=== PATIENT | female | born 1995 | race Caucasian/White ===

== ENCOUNTER 2018-09-27 17:05 | Emergency (ER) | payer BC ==
[2018-09-27] MEDS ORDERED: ASPIRIN 81 MG CHEWABLE TABLET PO ONE (17:30)
[2018-09-27] MEDS ORDERED: KETOROLAC 30 MG/ML VIAL IVP ONE (17:31)
[2018-09-27 17:44] LABS: BASO % 0.2 % (0-6); GRAN % 64.7 % (47-80); HEMATOCRIT 46.4 % (35.0-47.0); HEMOGLOBIN 15.6 gm/dl (11.6-16.0); LYMPH % 27.3 % (16-45); MEAN CELL VOLUME 95.5 fl (81-97); MEAN CORPUSCULAR HEMOGLOBIN 32.1 pg (27-33); MEAN CORPUSCULAR HGB CONC 33.6 g/dl (32-36); MEAN PLATELET VOLUME 10.4 fl (7.4-10.4); MONO % 6.8 % (0-9); PLATELET COUNT 454 K/uL (130-400); RED BLOOD COUNT 4.86 M/uL (3.80-5.40); RED CELL DISTRIBUTION WIDTH 12.4 % (11.5-14.5); WHITE BLOOD COUNT W/O DIFF 10.5 K/uL (4.2-12.2)
[2018-09-27 17:59] LABS: BLOOD UREA NITROGEN 12 mg/dL (6-20); CREATININE 0.7 mg/dL (0.5-0.9); EST GLOMERULAR FILTRATION RATE > 60 mL/min
[2018-09-27 18:00] LABS: TOTAL PROTEIN 8.5 g/dL (6.6-8.7)
[2018-09-27 18:02] LABS: GLUCOSE,RANDOM 110 mg/dL (74-109)
--- NOTE | 2018-09-27 18:02 | Emergency Department Record ---
History of Present Illness - General Chief Complaint: Chest Pain Stated Complaint: CHEST PAIN Time Seen by Provider: 09/27/18 17:19 Source: Patient Mode of Arrival: Ambulatory Limitations: No limitations - History of Present Illness Initial Comments: pt was working out in the gym when she stopped she developed cp that was squeezing and radiated to her neck and jaw. she has never had anything like this before. she had nausea. MD Complaint: Chest pain Onset/Timin -: Hour(s) Onset: During exertion Pain Location: Substernal Pain Radiation: RUE, LUE, Neck, Jaw/teeth Severity: Moderate Severity scale (1-10): 7 Quality: Tightness Consistency: Intermittent Improves With: Nothing Worsens With: Nothing Anginal Symptoms: Nausea - Related Data On Oral Contraceptives: No Home Medications Medication Instructions Recorded Confirmed Last Taken No Home Med [NO HOME MEDS] 09/27/18 09/27/18 Unknown Allergies Allergy/AdvReac Type Severity Reaction Status Date / Time Sulfa (Sulfonamide Allergy HIVES Verified 09/27/18 17:08 Antibiotics) diphenhydramine AdvReac TACHYCARDIA Verified 09/27/18 17:08 [From Benadryl] Travel Screening - Travel/Exposure Within Last 30 Days Have you traveled within the last 30 days?: Yes Location Detail:: [facility] - Travel/Exposure Within Last Year Have you traveled outside the [place] in the last year?: Yes Location Detail:: [place] - Travel Symptoms Symptom Screening: None Review of Systems Reviewed: No additional complaints except as noted below Constitutional: Reports: As per HPI. Denies: Chills, Fever, Malaise, Night sweats, Weakness, Weight change Eyes: Reports: As per HPI. Denies: Eye discharge, Eye pain, Photophobia, Vision change ENT: Reports: As per HPI. Denies: Congestion, Dental pain, Ear pain, Epistaxis , Hearing loss, Throat pain Respiratory: Reports: As per HPI. Denies: Cough, Dyspnea, Hemoptysis, Stridor, Wheezes Cardiovascular: Reports: As per HPI, Chest pain. Denies: Arrhythmia, Dyspnea on exertion, Edema, Murmurs, Orthopnea, Palpitations, Paroxysmal nocturnal dyspnea, Rheumatic Fever, Syncope Endocrine: Reports: As per HPI. Denies: Fatigue, Heat or cold intolerance, Polydipsia, Polyuria Gastrointestinal: Reports: As per HPI, Nausea. Denies: Abdominal pain, Constipation, Diarrhea, Hematemesis, Hematochezia, Melena, Vomiting Genitourinary: Reports: As per HPI. Denies: Abnormal menses, Discharge, Dyspareunia, Dysuria, Frequency, Hematuria, Incontinence, Retention, Urgency Musculoskeletal: Reports: As per HPI. Denies: Arthralgia, Back pain, Gout, Joint swelling, Myalgia, Neck pain Skin: Reports: As per HPI. Denies: Bruising, Change in color, Change in hair/ nails, Lesions, Pruritus, Rash Neurological: Reports: As per HPI. Denies: Abnormal gait, Confusion, Headache, Numbness, Paresthesias, Seizure, Tingling, Tremors, Vertigo, Weakness Psychiatric: Reports: As per HPI. Denies: Anxiety, Auditory hallucinations, Depression, Homicidal thoughts, Suicidal thoughts, Visual hallucinations Hematological/Lymphatic: Reports: As per HPI. Denies: Anemia, Blood Clots, Easy bleeding, Easy bruising, Swollen glands Past Medical History - SOCIAL HISTORY Smoking Status: Never smoker Alcohol Use: None Drug Use: None - RESPIRATORY Hx Bronchitis: Yes Hx Pneumonia: Yes - NEURO Hx Neuro Disorders: No - GI Hx Irritable Bowel: Yes - Hx Genitourinary Disorders: Yes Hx Kidney Stones: Yes Hx UTI: Yes - ENDOCRINE Hx Endocrine Disorders: No - MUSCULOSKELETAL Hx Musculoskeletal Disorders: No - PSYCH Hx Psych Problems: Yes Hx Anxiety: Yes - HEMATOLOGY/ONCOLOGY Hx Hematology/Oncology Disorders: No Family Medical History Any Significant Family History?: Yes Physical Exam - General General Appearance: Alert, Oriented x3, Cooperative, Mild distress - Head Head exam: Normal inspection - Eye Eye exam: Normal appearance, PERRL, EOMI Pupils: Normal accommodation - ENT ENT exam: Normal exam, Mucous membranes moist, Normal external ear exam, Normal orophraynx Ear exam: Normal external inspection. negative: External canal tenderness Nasal Exam: Normal inspection. negative: Discharge, Sinus tenderness Mouth exam: Normal external inspection, Tongue normal Teeth exam: Normal inspection. negative: Dental caries Throat exam: Normal inspection. negative: Tonsillar erythema, Tonsillar exudate - Neck Neck exam: Normal inspection, Full ROM. negative: Tenderness - Respiratory Respiratory exam: Normal lung sounds bilaterally. negative: Respiratory distress - Cardiovascular Cardiovascular Exam: Normal rhythm, Normal heart sounds, Tachycardia - GI/Abdominal GI/Abdominal exam: Soft, Normal bowel sounds. negative: Tenderness - Rectal Rectal exam: Deferred - exam: Deferred - Extremities Extremities exam: Normal inspection, Full ROM, Normal capillary refill. negative: Tenderness - Back Back exam: Reports: Normal inspection, Full ROM. Denies: Muscle spasm, Rash noted, Tenderness - Neurological Neurological exam: Alert, CN II-XII intact, Normal gait, Oriented X3 - Psychiatric Psychiatric exam: Normal affect, Normal mood - Skin Skin exam: Dry, Intact, Normal color, Warm Course Vital Signs 09/27/18 17:09 Temperature 98.2 F Pulse Rate 133 H Respiratory 24 Rate Blood Pressure 138/88 Pulse Ox 100 - Reevaluation(s) Reevaluation #1: 09/27/18 19:18 care turned over to dr barry pending 4 hour troponin and cpk and ckmb Medical Decision Making - Lab Data Result diagrams: 09/27/18 17:05 09/27/18 17:05 Lab Results 09/27/18 09/27/18 Range/Units 17:05 17:05 WBC 10.5 (4.2-12.2) K/uL RBC 4.86 (3.80-5.40) M/uL Hgb 15.6 (11.6-16.0) gm/dl Hct 46.4 (35.0-47.0) % MCV 95.5 (81-97) fl MCH 32.1 (27-33) pg MCHC 33.6 (32-36) g/dl RDW 12.4 (11.5-14.5) % Plt Count 454 H (130-400) K/uL MPV 10.4 (7.4-10.4) fl Gran % 64.7 (47-80) % Lymphocytes % 27.3 (16-45) % Monocytes % 6.8 (0-9) % Eosinophils % 1.0 (0-6) % Basophils % 0.2 (0-6) % D-Dimer 0.24 (0-0.59) mg/L FEU Disposition Forms: Patient Portal Access Quality - Blood Pressure Screening Does Patient Have Any of the Following: No Blood Pressure Classification: Pre-Hypertensive BP Reading Systolic Measurement: 138 Diastolic Measurement: 88 Screening for High Blood Pressure: < Pre-Hypertensive BP, F/U Documented > [ G8950]
[2018-09-27 18:04] LABS: ALB/GLOB RATIO 1.4 (1.1-1.8); ALT/SGPT 70 U/L (<33); AST/SGOT 144 U/L (10.0-35.0)
[2018-09-27 18:05] LABS: ALKALINE PHOSPHATASE 58 U/L (45-87)
[2018-09-27 18:07] LABS: CKMB 5.1 ng/mL (<3.77)
[2018-09-27 18:19] LABS: CREATINE PHOSPHOKINASE 3004 U/L (26-192)
[2018-09-27] MEDS ORDERED: 0.9 % SODIUM CHLORIDE 1,000 ML BAG IV ONE ×2 (18:25→19:22)
[2018-09-27 18:36] LABS: URINE APPEARANCE SL CLOUDY; URINE BILIRUBIN NEGATIVE (NEGATIVE); URINE BLOOD SMALL (NEGATIVE); URINE COLOR YELLOW; URINE GLUCOSE (UA) NEGATIVE (NEGATIVE); URINE KETONE NEGATIVE (NEGATIVE); URINE LEUKOCYTE ESTERASE TRACE (NEGATIVE); URINE NITRITE NEGATIVE (NEGATIVE); URINE PROTEIN NEGATIVE (NEGATIVE); URINE UROBILINOGEN 0.2 E.U./dL (0.20 - 1.00)
[2018-09-27 18:43] LABS: HCG,QUALITATIVE URINE NEGATIVE (NEGATIVE)
[2018-09-27 18:47] LABS: URINE BACTERIA 3+; URINE RBC 0 - 2 (NONE SEEN)
[2018-09-27 21:27] LABS: CREATINE PHOSPHOKINASE 1937 U/L (26-192)
--- NOTE | 2018-09-27 21:27 | Emergency Department Record ---
History of Present Illness - General Chief Complaint: Chest Pain Stated Complaint: CHEST PAIN Time Seen by Provider: 09/27/18 17:19 Source: Patient Mode of Arrival: Ambulatory Limitations: No limitations - History of Present Illness Onset/Timin -: Hour(s) Onset: During exertion Pain Location: Substernal Pain Radiation: RUE, LUE, Neck, Jaw/teeth Severity: Moderate Severity scale (1-10): 7 Quality: Tightness Consistency: Intermittent Improves With: Nothing Worsens With: Nothing Anginal Symptoms: Nausea - Related Data On Oral Contraceptives: No Home Medications Medication Instructions Recorded Confirmed Last Taken No Home Med [NO HOME MEDS] 09/27/18 09/27/18 Unknown Allergies Allergy/AdvReac Type Severity Reaction Status Date / Time Sulfa (Sulfonamide Allergy HIVES Verified 09/27/18 17:08 Antibiotics) diphenhydramine AdvReac TACHYCARDIA Verified 09/27/18 17:08 [From Benadryl] Travel Screening - Travel/Exposure Within Last 30 Days Have you traveled within the last 30 days?: Yes Location Detail:: [place] - Travel/Exposure Within Last Year Have you traveled outside the [place] in the last year?: Yes Location Detail:: [place] - Travel Symptoms Symptom Screening: None Review of Systems Constitutional: Reports: As per HPI. Denies: Chills, Fever, Malaise, Night sweats, Weakness, Weight change Eyes: Reports: As per HPI. Denies: Eye discharge, Eye pain, Photophobia, Vision change ENT: Reports: As per HPI. Denies: Congestion, Dental pain, Ear pain, Epistaxis , Hearing loss, Throat pain Respiratory: Reports: As per HPI. Denies: Cough, Dyspnea, Hemoptysis, Stridor, Wheezes Cardiovascular: Reports: As per HPI, Chest pain. Denies: Arrhythmia, Dyspnea on exertion, Edema, Murmurs, Orthopnea, Palpitations, Paroxysmal nocturnal dyspnea, Rheumatic Fever, Syncope Endocrine: Reports: As per HPI. Denies: Fatigue, Heat or cold intolerance, Polydipsia, Polyuria Gastrointestinal: Reports: As per HPI, Nausea. Denies: Abdominal pain, Constipation, Diarrhea, Hematemesis, Hematochezia, Melena, Vomiting Genitourinary: Reports: As per HPI. Denies: Abnormal menses, Discharge, Dyspareunia, Dysuria, Frequency, Hematuria, Incontinence, Retention, Urgency Musculoskeletal: Reports: As per HPI. Denies: Arthralgia, Back pain, Gout, Joint swelling, Myalgia, Neck pain Skin: Reports: As per HPI. Denies: Bruising, Change in color, Change in hair/ nails, Lesions, Pruritus, Rash Neurological: Reports: As per HPI. Denies: Abnormal gait, Confusion, Headache, Numbness, Paresthesias, Seizure, Tingling, Tremors, Vertigo, Weakness Psychiatric: Reports: As per HPI. Denies: Anxiety, Auditory hallucinations, Depression, Homicidal thoughts, Suicidal thoughts, Visual hallucinations Hematological/Lymphatic: Reports: As per HPI. Denies: Anemia, Blood Clots, Easy bleeding, Easy bruising, Swollen glands Past Medical History - SOCIAL HISTORY Smoking Status: Never smoker Alcohol Use: None Drug Use: None - RESPIRATORY Hx Bronchitis: Yes Hx Pneumonia: Yes - NEURO Hx Neuro Disorders: No - GI Hx Irritable Bowel: Yes - Hx Genitourinary Disorders: Yes Hx Kidney Stones: Yes Hx UTI: Yes - ENDOCRINE Hx Endocrine Disorders: No - MUSCULOSKELETAL Hx Musculoskeletal Disorders: No - PSYCH Hx Psych Problems: Yes Hx Anxiety: Yes - HEMATOLOGY/ONCOLOGY Hx Hematology/Oncology Disorders: No Family Medical History Any Significant Family History?: Yes Physical Exam - General Limitations: No limitations Course Vital Signs 09/27/18 09/27/18 09/27/18 17:09 18:17 19:32 Temperature 98.2 F Pulse Rate 133 H 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 Patient and her mother were updated on all results as well as the plan for repeat labs. Further history reveals that the patient engaged in a newer "full-body" work- out 3 days ago with a vocational trainer, likely the etiology of her elevated CPK. All questions were answered. Reevaluation #2: 09/27/18 21:34 repeat labs were reviewed: Troponin < 0.010 CPK improved to 1937 MB 4.1 Patient and her mother were updated on all results, appears stable for discharge at this time. Medical Decision Making - Lab Data Result diagrams: 09/27/18 17:05 09/27/18 17:05 Lab Results 09/27/18 09/27/18 09/27/18 Range/Units 17:05 17:05 17:05 WBC 10.5 (4.2-12.2) K/uL RBC 4.86 (3.80-5.40) M/uL Hgb 15.6 (11.6-16.0) gm/dl Hct 46.4 (35.0-47.0) % MCV 95.5 (81-97) fl MCH 32.1 (27-33) pg MCHC 33.6 (32-36) g/dl RDW 12.4 (11.5-14.5) % Plt Count 454 H (130-400) K/uL MPV 10.4 (7.4-10.4) fl Gran % 64.7 (47-80) % Lymphocytes % 27.3 (16-45) % Monocytes % 6.8 (0-9) % Eosinophils % 1.0 (0-6) % Basophils % 0.2 (0-6) % D-Dimer 0.24 (0-0.59) mg/L FEU Sodium 142 (136-145) mmol/L Potassium 4.1 (3.4-4.5) mmol/L Chloride 101 (98-107) mmol/L Carbon Dioxide 21.0 L (22-29) mmol/L Anion Gap 20.0 H (7-16) BUN 12 (6-20) mg/dL Creatinine 0.7 (0.5-0.9) mg/dL Estimated GFR > 60 mL/min Random Glucose 110 H (74-109) mg/dL Calcium 9.7 (8.6-10.0) mg/dL Total Bilirubin 0.20 (0.2-1.0) mg/dL AST 144 H (10.0-35.0) U/L ALT 70 H (<33) U/L Alkaline Phosphatase 58 (45-87) U/L Creatine Kinase 3004 H (26-192) U/L CK-MB (CK-2) 5.1 H (<3.77) ng/mL Troponin T < 0.010 (0-0.010) ng/mL Total Protein 8.5 (6.6-8.7) g/dL Albumin 5.0 (4.0-5.0) g/dL Globulin 3.5 (1.4-4.8) gm/dL Albumin/Globulin Ratio 1.4 (1.1-1.8) Urine Color Urine Appearance Urine pH (5.0-8.0) Ur Specific [place] (1.002-1.030) Urine Protein (NEGATIVE) Urine Glucose (UA) (NEGATIVE) Urine Ketones (NEGATIVE) Urine Blood (NEGATIVE) Urine Nitrite (NEGATIVE) Urine Bilirubin (NEGATIVE) Urine Urobilinogen (0.20 - 1.00) E.U./dL Ur Leukocyte Esterase (NEGATIVE) Urine RBC (NONE SEEN) Urine WBC (0-2/hpf) Ur Epithelial Cells (FEW) Urine Bacteria Urine HCG, Qual (NEGATIVE) 09/27/18 Range/Units 18:30 WBC (4.2-12.2) K/uL RBC (3.80-5.40) M/uL Hgb (11.6-16.0) gm/dl Hct (35.0-47.0) % MCV (81-97) fl MCH (27-33) pg MCHC (32-36) g/dl RDW (11.5-14.5) % Plt Count (130-400) K/uL MPV (7.4-10.4) fl Gran % (47-80) % Lymphocytes % (16-45) % Monocytes % (0-9) % Eosinophils % (0-6) % Basophils % (0-6) % D-Dimer (0-0.59) mg/L FEU Sodium (136-145) mmol/L Potassium (3.4-4.5) mmol/L Chloride (98-107) mmol/L Carbon Dioxide (22-29) mmol/L Anion Gap (7-16) BUN (6-20) mg/dL Creatinine (0.5-0.9) mg/dL Estimated GFR mL/min Random Glucose (74-109) mg/dL Calcium (8.6-10.0) mg/dL Total Bilirubin (0.2-1.0) mg/dL AST (10.0-35.0) U/L ALT (<33) U/L Alkaline Phosphatase (45-87) U/L Creatine Kinase (26-192) U/L CK-MB (CK-2) (<3.77) ng/mL Troponin T (0-0.010) ng/mL Total Protein (6.6-8.7) g/dL Albumin (4.0-5.0) g/dL Globulin (1.4-4.8) gm/dL Albumin/Globulin Ratio (1.1-1.8) Urine Color Yellow Urine Appearance Sl cloudy Urine pH 6.0 (5.0-8.0) Ur Specific [place] 1.010 (1.002-1.030) Urine Protein Negative (NEGATIVE) Urine Glucose (UA) Negative (NEGATIVE) Urine Ketones Negative (NEGATIVE) Urine Blood Small H (NEGATIVE) Urine Nitrite Negative (NEGATIVE) Urine Bilirubin Negative (NEGATIVE) Urine Urobilinogen 0.2 (0.20 - 1.00) E.U./dL Ur Leukocyte Esterase Trace H (NEGATIVE) Urine RBC 0 - 2 (NONE SEEN) Urine WBC 6 - 10 (0-2/hpf) Ur Epithelial Cells 7 - 10 (FEW) Urine Bacteria 3+ Urine HCG, Qual Negative (NEGATIVE) Disposition Disposition: Discharge Clinical Impression: Elevated CPK Chest pain Qualifiers: Chest pain type: unspecified Qualified Code(s): R07.9 - Chest pain, unspecified Disposition: Home, Self-Care Condition: (2) Stable Instructions: Rhabdomyolysis (ED) Additional Instructions: Return to ED if your symptoms worsen or if you have any concerns. Drink plenty of clear fluids as directed. Follow-up with your family doctor in 3-5 days as directed. Repeat lab draw in 72 hours. Forms: Patient Portal Access Time of Disposition: 21:35 Quality - Quality Measures Quality Measures: N/A - Blood Pressure Screening Does Patient Have Any of the Following: No Blood Pressure Classification: Pre-Hypertensive BP Reading Systolic Measurement: 138 Diastolic Measurement: 88 Screening for High Blood Pressure: < Pre-Hypertensive BP, F/U Documented > [ G8950] Pre-Hypertensive Follow-up Interventions: Referral to alternative/primary care provider.
[2018-09-27 21:28] LABS: CKMB 4.1 ng/mL (<3.77)
--- NOTE | 2018-09-29 22:33 | RADIOLOGY REPORT ---
EXAM: CHEST 2 VIEWS HISTORY: COUGH. CHEST PAIN. TECHNIQUE: Two views of the chest. COMPARISON: None. FINDINGS: Cardiac silhouette within normal size limits. No focal pulmonary consolidation. No pleural effusion or pneumothorax. No acute osseous findings. IMPRESSION: NO ACUTE LUNG FINDINGS. JOB NUMBER: [id number] MTDD
== END 2018-09-27 21:57 | disposition home or self-care (01) ==
LOC: ER 17:05
DX: R74.8 Abnormal levels of other serum enzymes (principal); R07.2 Precordial pain; R11.0 Nausea; R05 Cough; R20.2 Paresthesia of skin
CPT/HCPCS: 99284 ×2; 96374; 96361; 82550; 85025; 82553; 80053; 81001; 81025; 84484; 85379; 71046; 93005; 93010; J1885; J7030